=== PATIENT | male | born 1950 | race Caucasian/White ===

== ENCOUNTER 2017-06-01 03:22 | Emergency (ER) | payer OTHER ==
[~2017-06-01] VITALS: Ht 172.7 cm; Wt 97.5 kg
[~2017-06-01 03:22] MED LIST: FAMO-63 PO; LEVO750T31 PO; LOSA25TA4 PO; PRED20TA PO; VENTOLIN HFA18 GM INH
[2017-06-01] MEDS ORDERED: IV NORMAL SALINE 1000ML BAG 1,000 ML IV SCH (03:39)
[2017-06-01 03:53] LABS: BASO # 0.1 x10^3/uL (0.0-0.2); BASO % 1 % (0-3); EOS % 5 % (0-3); HEMATOCRIT 44.4 % (39.0-53.0); LYMPH # 4.8 x10^3/uL (1.0-4.8); LYMPH % 51 % (24-48); MEAN CORPUSCULAR HEMOGLOBIN 31 pg (25-35); MEAN CORPUSCULAR HGB CONC 34 g/dL (31-37); MEAN CORPUSCULAR VOLUME 90 fL (79-100); MONO % 12 % (0-9); NEUT % 32 % (31-73); PLATELET COUNT 214 x10^3/uL (140-400); RED BLOOD COUNT 4.94 x10^6/uL (4.30-5.70); WHITE BLOOD COUNT 9.5 x10^3/uL (4.0-11.0)
[2017-06-01] MEDS: HYDROmorphone 2 MG/ML VIAL IV/SQ PRN ×3 (03:55→04:39)
[2017-06-01 03:56] LABS: BILIRUBIN,URINE NEGATIVE (NEG); GLUCOSE,URINE NEGATIVE (NEG); NITRITE,URINE NEGATIVE (NEG); PH,URINE 5.5; PROTEIN,URINE 30 mg/dL (NEG-TRACE); UROBILINOGEN,URINE 0.2 mg/dL (0.2 mg/dL)
--- NOTE | 2017-06-01 03:58 | ED.ADGEN ---
Past Medical History Past Medical History: Hypertension Additional Past Medical Histor: SLEEP APNEA Past Surgical History: Other Additional Past Surgical Histo: LEFT WRIST ERIBERTO PLACED Alcohol Use: None Drug Use: None Adult General Chief Complaint Chief Complaint: FLANK PAIN HPI HPI Patient is a 66 year old man, history of hypertension, sleep apnea, who presents to the emergency department with a complaint of sudden onset of right- sided flank pain radiating down to the right groin. Patient states that he was awoken from sleep by severe right-sided flank pain, states it is over the pain he has experienced "20 or 30 years ago", when he had a kidney stone. Patient stated that time he did require intervention for retrieval of the stone as it was too large to pass on its own. Patient states he has had some nausea with this, denies any chest pain or shortness breath, any abdominal pain initially, states now the pain is radiating down into the right groin, he states that he has been urinating without any issue, no hematuria or dysuria, denies any injuries, denies any other back pain, any weakness, numbness or tingling in place. Patient is extremely uncomfortable, rocking on the bed. Review of Systems Review of Systems Constitutional: Denies fever or chills. [] Eyes: Denies change in visual acuity. [] HENT: Denies nasal congestion or sore throat. [] Respiratory: Denies cough or shortness of breath. [] Cardiovascular: Denies chest pain or edema. [] GI: Denies vomiting, bloody stools or diarrhea. [] Pain in the right flank now radiating down to the right lower quadrant and right groin. Associated with nausea. : Denies dysuria. [] Musculoskeletal: Denies back pain or joint pain. [] Integument: Denies rash. [] Neurologic: Denies headache, focal weakness or sensory changes. [] Endocrine: Denies polyuria or polydipsia. [] Lymphatic: Denies swollen glands. [] Psychiatric: Denies depression or anxiety. [] Current Medications Current Medications Current Medications Medications (Trade) Dose Ordered Sig/Meka Start Time Stop Time Status Last Admin Dose Admin Acetaminophen/ Hydrocodone Bitart (Lortab 10/325) 1 tab 1X ONCE 06/01/17 06:00 06/01/17 06:01 DC 06/01/17 05:47 1 TAB Hydromorphone HCl (Dilaudid) 0.5 mg PRN Q15MIN PRN 06/01/17 03:45 06/02/17 03:44 06/01/17 04:39 0.5 MG Ketorolac Tromethamine (Toradol) 10 mg 1X ONCE 06/01/17 06:00 06/01/17 06:01 DC 06/01/17 05:47 10 MG Levofloxacin (Levaquin) 750 mg 1X ONCE 06/01/17 06:00 06/01/17 06:01 DC 06/01/17 05:48 750 MG Ondansetron HCl (Zofran) 4 mg 1X ONCE 06/01/17 06:00 06/01/17 06:01 DC 06/01/17 05:47 4 MG Sodium Chloride 1,000 ml @ 1,000 mls/hr Q1H 06/01/17 03:39 06/01/17 04:38 DC 06/01/17 03:56 1,000 MLS/HR Tamsulosin HCl (Flomax) 0.4 mg 1X ONCE 06/01/17 06:00 06/01/17 06:01 DC 06/01/17 05:48 0.4 MG Allergies Allergies Allergies Coded Allergies Type Severity Reaction Last Updated Verified No Known Drug Allergies 09/10/14 No Physical Exam Physical Exam Constitutional: Well developed, well nourished, patient appears extremely uncomfortable, is rocking on bed, non-toxic appearance. [] HENT: Normocephalic, atraumatic, bilateral external ears normal, oropharynx moist, no oral exudates, nose normal. [] Eyes: PERRLA, EOMI, conjunctiva normal, no discharge. [] Neck: Normal range of motion, no tenderness, supple, no stridor. [] Cardiovascular:Heart rate regular rhythm, no murmur , S1, S2, rubs or gallops.[] Lungs & Thorax: Bilateral breath sounds clear to auscultation, no wheezing, rhonchi, rales. No chest or crepitus or tenderness. [] Abdomen: Bowel sounds normal, soft, obese, no rebound, rigidity, no guarding, no tenderness, no masses, no pulsatile masses. [] Skin: Warm, dry, no erythema, no rash. [] Back: No tenderness, right-sided CVA tenderness noted. Radiating down to the right groin, no abdominal tenderness on palpation. Extremities: No tenderness, no cyanosis, no clubbing, ROM intact, no edema. [] Neurologic: Alert and oriented X 3, normal motor function, normal sensory function, no focal deficits noted. [] Psychologic: Affect normal, judgement normal, mood normal. [] Current Patient Data Vital Signs Vital Signs Date Time Temp Pulse Resp B/P (MAP) Pulse Ox O2 Delivery O2 Flow Rate FiO2 06/01/17 06:01 57 20 136/74 (94) 93 Room Air 06/01/17 05:01 2.0 06/01/17 03:41 97.5 97.5 Lab Values Laboratory Tests Test 06/01/17 03:20 06/01/17 03:35 Urine Collection Type Unknown Urine Color Yellow Urine Clarity Clear Urine pH 5.5 Urine Specific [place] >=1.030 Urine Protein 30 mg/dL (NEG-TRACE) Urine Glucose (UA) Negative mg/dL (NEG) Urine Ketones (Stick) Negative mg/dL (NEG) Urine Blood Moderate (NEG) Urine Nitrite Negative (NEG) Urine Bilirubin Negative (NEG) Urine Urobilinogen Dipstick 0.2 mg/dL (0.2 mg/dL) Urine Leukocyte Esterase Negative (NEG) Urine RBC 11-20 /HPF (0-2) Urine WBC 1-4 /HPF (0-4) Urine Squamous Epithelial Cells Few /LPF Urine Bacteria Few /HPF (0-FEW) Urine Mucus Marked /LPF White Blood Count 9.5 x10^3/uL (4.0-11.0) Red Blood Count 4.94 x10^6/uL (4.30-5.70) Hemoglobin 15.0 g/dL (13.0-17.5) Hematocrit 44.4 % (39.0-53.0) Mean Corpuscular Volume 90 fL (79-100) Mean Corpuscular Hemoglobin 31 pg (25-35) Mean Corpuscular Hemoglobin Concent 34 g/dL (31-37) Red Cell Distribution Width 13.0 % (11.5-14.5) Platelet Count 214 x10^3/uL (140-400) Neutrophils (%) (Auto) 32 % (31-73) Lymphocytes (%) (Auto) 51 % (24-48) H Monocytes (%) (Auto) 12 % (0-9) H Eosinophils (%) (Auto) 5 % (0-3) H Basophils (%) (Auto) 1 % (0-3) Neutrophils # (Auto) 3.0 x10^3uL (1.8-7.7) Lymphocytes # (Auto) 4.8 x10^3/uL (1.0-4.8) Monocytes # (Auto) 1.1 x10^3/uL (0.0-1.1) Eosinophils # (Auto) 0.5 x10^3/uL (0.0-0.7) Basophils # (Auto) 0.1 x10^3/uL (0.0-0.2) Sodium Level 140 mmol/L (136-145) Potassium Level 3.8 mmol/L (3.5-5.1) Chloride Level 104 mmol/L (98-107) Carbon Dioxide Level 25 mmol/L (21-32) Anion Gap 11 (6-14) Blood Urea Nitrogen 22 mg/dL (8-26) Creatinine 1.3 mg/dL (0.7-1.3) Estimated GFR (Cockcroft-Gault) 55.6 BUN/Creatinine Ratio 17 (6-20) Glucose Level 117 mg/dL (70-99) H Calcium Level 9.4 mg/dL (8.5-10.1) Total Bilirubin 0.3 mg/dL (0.2-1.0) Aspartate Amino Transferase (AST) 31 U/L (15-37) Alanine Aminotransferase (ALT) 71 U/L (16-63) H Alkaline Phosphatase 175 U/L (46-116) H Total Protein 7.8 g/dL (6.4-8.2) Albumin 3.6 g/dL (3.4-5.0) Albumin/Globulin Ratio 0.9 (1.0-1.7) L Laboratory Tests 06/01/17 03:35 Laboratory Tests 06/01/17 03:35 EKG EKG EC: Sinus rhythm, heart rate 60 bpm, upright axis, QTC of 434, WA 146, QRS of 100, no ST elevations or depressions, mild baseline artifact noted, contour abnormalities noted in the anterior lateral leads, abnormal ECG, does not meet STEMI criteria. As interpreted by me. Radiology/Procedures Radiology/Procedures [][facility] [address] [place] [address] IMAGING REPORT Signed PATIENT: JOSÉ LUIS HOOVER ACCOUNT: [id number] : 1950 LOCATION: ER AGE: 66 SEX: M EXAM STATUS: REG ER ORD. PHYSICIAN: NICHOLAS KAPLAN DO REASON: R flank pain PROCEDURE: CT ABDOMEN PELVIS WO CONTRAST CT abdomen and pelvis without contrast TECHNIQUE: Helical noncontrast imaging of the abdomen and pelvis. HISTORY: Right flank pain. Abdomen findings: Lung bases demonstrate calcified granulomas right lower lobe. Pulmonary nodules left lower lobe and lingula largest measuring 5 mm at the lingula. Lower lumbar spine disc bulges probable spinal canal stenosis and foraminal stenoses at L5-S1. 3 mm left renal calculus. Mild right renal hydronephrosis and perinephric edema due to a distal right ureteral 3 mm calculus approximately 3 cm above the bladder. Hypodensity of the liver likely fatty. Gallbladder, pancreas, adrenal glands and spleen are unremarkable. No obstruction or inflammation GI tract. Appendix not identified could be surgically absent or markedly hypoplastic. No abdominal free fluid. Pelvis findings: No bladder calculi. Prostate, rectum and bones are unremarkable. Bilateral fatty inguinal hernias. IMPRESSION: 1. Mild right renal hydronephrosis due to a 3 mm distal right ureteral obstructing calculus. 2. Left nephrolithiasis. 3. Fatty inguinal hernias. 4. 3 pulmonary nodules at the left lung base largest measuring 5 mm. In a low-risk patient no follow-up is necessary, in a high risk patient optional CT follow-up in 12 months would be advised per Fleischner guidelines. Exposure: One or more of the following individualized dose reduction techniques were utilized for this examination: 1. Automated exposure control 2. Adjustment of the mA and/or kV according to patient size 3. Use of iterative reconstruction technique Electronically signed by: Ronna Rodriguez MD (06/01/2017 5:10 AM) [facility] DICTATED and SIGNED BY: RONNA RODRIGUEZ MD DATE: 06/01/17 0508 CC: NEREIDA BARR MD; NICHOLAS KAPLAN DO ~ Course & Med Decision Making Course & Med Decision Making Pertinent Labs and Imaging studies reviewed. (See chart for details) Patient's examination and history are concerning for recurrent renal calculi. Patient agreeable to receiving antiemetics, pain medication, IV fluids, and CT imaging of the abdomen and pelvis to elucidate symptoms further and identify a possible renal calculus versus another cause of his symptoms. CT of the abdomen and pelvis revealed a 3 mm obstructing calculi 3 cm above the bladder. Mild hydronephrosis noted, patient noted to have a few bacteria in the urine, no nitrates, lupus, and only one to 4 WBCs, renal function and lites within normal limits aside from a mildly elevated glucose at 117. Patient resting more comfortably after receiving several doses of pain medication, no emesis in the ED. I did discuss findings as above with patient, patient is agreeable with plan to be discharged home with oral medications, for a home trial, instructed to stay well-hydrated, will return to the ED if he is unable tolerate medications, or nuchal or concerning symptoms develop. We did have a lengthy discussion at bedside regarding importance of follow-up and return for concerning symptoms. Patient was given oral hydrocodone, Flomax, Levaquin,due to the small amount of bacteria in the urine, along with a second dose of Zofran , Toradol. On reevaluation he continues to be comfortable, and tolerate medications without issue. Discharged home in stable condition with symptoms controlled with prescriptions for Zofran, Percocet, naproxen, Flomax, Levaquin, with follow-up instructions, and return precautions as stated. Dragon Disclaimer Dragon Disclaimer This electronic medical record was generated, in whole or in part, using a voice recognition dictation system. Departure Impression: Primary Impression: Ureteral calculi Disposition: HOME, SELF-CARE Condition: IMPROVED Scripts Oxycodone/Apap 7.5-325 (PERCOCET 7.5-325 MG TABLET) 1 Each Tablet 1 TAB PO PRN Q4-6HRS Y for PAIN, #12 TAB 0 Refills Caution with use of this medication as it may cause drowsiness, no driving or operating machinery while using oxycodone. Prov: NICHOLAS KAPLAN DO 06/01/17 Ondansetron Hcl (ZOFRAN) 4 Mg Tablet 1 TAB PO PRN Q6-8HRS Y for NAUSEA, #12 TAB Prov: NICHOLAS KAPLAN DO 06/01/17 Levofloxacin (LEVAQUIN) 750 Mg Tablet 1 TAB PO DAILY, #4 TAB One tablet by mouth once daily for 5 days. First dose given in the emergency department, begin on 06/02. Prov: NICHOLAS KAPLAN DO 06/01/17 Tamsulosin Hcl (FLOMAX) 0.4 Mg Cap.er.24h 0.4 MG PO DAILY, #3 TAB One tablet by mouth once daily for the next 3 days. Begin on 06/02. Prov: NICHOLAS KAPLAN DO 06/01/17 Naproxen (NAPROXEN) 250 Mg Tablet 250 MG PO PRN BID Y for PAIN, #10 Take with food, stop use if stomach upset develops. Prov: NICHOLAS KAPLAN DO 06/01/17 NICHOLAS KAPLAN DO Jun 01, 2017 03:58
[2017-06-01] MEDS ORDERED: ONDANSETRON PF 4 MG/2 ML VIAL. IV ONE ×2 (04:00→06:00)
[2017-06-01 04:10] LABS: CALCIUM 9.4 mg/dL (8.5-10.1); CREATININE 1.3 mg/dL (0.7-1.3); GFR 55.6; POTASSIUM 3.8 mmol/L (3.5-5.1)
[2017-06-01 04:18] LABS: ALBUMIN 3.6 g/dL (3.4-5.0); ALBUMIN/GLOBULIN RATIO 0.9 (1.0-1.7); TOTAL BILIRUBIN 0.3 mg/dL (0.2-1.0); TOTAL PROTEIN 7.8 g/dL (6.4-8.2)
[2017-06-01 04:26] LABS: BACTERIA,URINE FEW /HPF (0-FEW); SQUAMOUS EPITHELIAL CELL,UR FEW /LPF
--- NOTE | 2017-06-01 05:13 | RAD ---
CT abdomen and pelvis without contrast TECHNIQUE: Helical noncontrast imaging of the abdomen and pelvis. HISTORY: Right flank pain. Abdomen findings: Lung bases demonstrate calcified granulomas right lower lobe. Pulmonary nodules left lower lobe and lingula largest measuring 5 mm at the lingula. Lower lumbar spine disc bulges probable spinal canal stenosis and foraminal stenoses at L5-S1. 3 mm left renal calculus. Mild right renal hydronephrosis and perinephric edema due to a distal right ureteral 3 mm calculus approximately 3 cm above the bladder. Hypodensity of the liver likely fatty. Gallbladder, pancreas, adrenal glands and spleen are unremarkable. No obstruction or inflammation GI tract. Appendix not identified could be surgically absent or markedly hypoplastic. No abdominal free fluid. Pelvis findings: No bladder calculi. Prostate, rectum and bones are unremarkable. Bilateral fatty inguinal hernias. IMPRESSION: 1. Mild right renal hydronephrosis due to a 3 mm distal right ureteral obstructing calculus. 2. Left nephrolithiasis. 3. Fatty inguinal hernias. 4. 3 pulmonary nodules at the left lung base largest measuring 5 mm. In a low-risk patient no follow-up is necessary, in a high risk patient optional CT follow-up in 12 months would be advised per Fleischner guidelines. Exposure: One or more of the following individualized dose reduction techniques were utilized for this examination: 1. Automated exposure control 2. Adjustment of the mA and/or kV according to patient size 3. Use of iterative reconstruction technique Electronically signed by: Ravi Rodriguez MD (06/01/2017 5:10 AM) [facility]
[2017-06-01] MEDS ORDERED: HYDROcodone/APAP 10/325 1 TAB TABLET PO ONE (06:00)
[2017-06-01] MEDS ORDERED: TAMSULOSIN 0.4 MG CAP.ER.24H. PO ONE (06:00)
[2017-06-01] MEDS ORDERED: KETOROLAC 15 MG/ML VIAL. IV ONE (06:00)
[2017-06-01 06:01] VITALS: BP 136/74
[2017-06-01] MEDS ORDERED: TAMS0.4C97 PO (06:26)
[2017-06-01] MEDS ORDERED: OXYC-327 PO (06:26)
[2017-06-01] MEDS ORDERED: ONDA4TAB7 PO (06:26)
[2017-06-01] MEDS ORDERED: NAPR250T6 PO (06:26)
[2017-06-01] MEDS ORDERED: LEVO750T31 PO (06:26)
--- NOTE | 2017-06-01 07:51 | EKG ---
[facility] [address] [place] [address] Test Date: 2017-06-01 Test Time: 04:01:15 Pat Name: JOSÉ LUIS HOOVER Department: Room: Gender: Front Desk Monitor: : 1950 Requested By: NICHOLAS KAPLAN Order Number: [id number] Reading MD: Madina Stokes Measurements Intervals [place] Rate: 60 P: 42 [place]: 146 QRS: 20 QRSD: 100 T: 28 QT: 430 QTc: 434 Interpretive Statements SINUS RHYTHM NORMAL ECG Electronically Signed On 06-01-2017 19:34:18 CDT by Madina Stokes
== END 2017-06-01 06:35 | disposition home or self-care (01) ==
LOC: ER 03:22
DX: N20.1 Calculus of ureter (principal); I10 Essential (primary) hypertension
CPT/HCPCS: 36415; 74176; 80053; 81001; 85025; 93005; 96374; 96375; 96376; 99285; J1170; J1885; J2405; J7030

== ENCOUNTER → 2021-07-20 | Outpatient (CLI) | payer MEDICARE, OTHER ==
[~2021-07-20] MED LIST changes: -LOSA25TA4 PO; +LOSA25TA54 PO; +NAPR-699 PO; +ONDA4TAB7 PO; +OXYC1TAB19 PO; +TAMS0.4C97 PO
--- NOTE | 2021-07-23 11:46 | RAD ---
MR#: [id number] Date of Study: 07/20/2021 Ordering Physician: HILARIO MALIK, Referring Physician: CHARMAINE DE LA GARZA Tech: RT Dwayne (R) (N) APPROVED REPORT Test Type: Exercise Stress Nurse/Tech: Teresa Hansen RN Test Indications: chest pain Cardiac History: HTN Medications: See Electronic Medical Record Medical History: See Electronic Medical Record Resting ECG: SR PAC Resting Heart Rate: 68 bpm Resting Blood Pressure: 148/97mmHg Pretest Chest Pain: No chest pain Nurse/Tech Notes Lungs CTA, S1S2 Consent: The procedure was explained to the patient in lay terms. Informed consent was witnessed. Lucas eout was entered into [employer]. History and Stress Test performed by ARIAS Steen, ARRT (R) (N) Stress Symptoms No chest pain or symptoms. POST EXERCISE Reason for Termination: Reached target heart rate Target HR: Yes Max HR: 153 bpm 100% of Maximum Predicted HR: 152 bpm Exercise duration: 6:12 min:sec, 3 Stage Exercise capacity: 10METs Max Blood Pressure: 179/91mmHg Blood Pressure response to exercise: Normal blood pressure response during stress. Heart Rate response to exercise: normal response Chest Pain: No. Arrhythmia: No. ST Change: No. INTERPRETATION Stress EKG Conclusion: The resting EKG shows a sinus rhythm with nonspecific ST-T wave changes and PV Cs. The stress EKG shows no significant changes from baseline. No EKG evidence of stress-induced ischemia. Imaging Protocol IMAGE PROTOCOL: Rest Tc-99m/stress Tc-99m 1 day Rest: Stress: Viability: Radiopharm.Tc99m GdvfgdbekDn86m Sestamibi Dose10.8mCi 32.1mCi Duration 15min. 15min. Img Date 07/20/2021 07/20/2021 Inj-Img Skou25bqm. 60min. Rest Admin Site:IV - Left HandAdministrator:RT Dwayne (R)(N) Stress Admin Site: IV - Left HandAdministrator: RT Jil (R)(N) STRESS DATA End Diast. Vol.104.0mlLVEDV index BSA48.0ml End Syst. Vol.33.0mlLVESV index BSA15.0ml Myocardial Vfej149.0gEject. Pddcodsg96.0% Stress Scores Regional WT0.00Summed WT4.00 Regional WM0.00Summed WM0.00 LV Perfusion The stress scans show mild inferior wall thinning. The rest scans show mild inferior wall thinning. Nuclear imaging shows no reversible ischemia. Nuclear imaging shows a largely fixed inferior defect most consistent with an attenuation artifact in the setting of normal LV function. Wall Motion Left ventricular systolic function is normal with an ejection fraction of 68%. LV Perf. Quant 17 Seg. SSS8.00 17 Seg. SRS8.00 17 Seg. SDS1.00 Stress Defect Extent (% LAD)0.00Rest Defect Extent (% LAD)0.00Rev. Defect Extent (% LAD)0.00 Stress Defect Extent (% LCX) 32.50Rest Defect Extent (% LCX)28.80Rev. Defect Extent (% LCX)1.30 Stress Defect Extent (% RCA)25.60Rest Defect Extent (% RCA)23.30Rev. Defect Extent (% RCA)1.10 Stress Defect Extent (% HUNTER)15.00Rest Defect Extent (% HUNTER)12.40Rev. Defect Extent (% HUNTER)0.90 Conclusion 1. Good exercise tolerance with the patient walking for 6 minutes and 12 seconds on a [facility] protocol. 2. No chest pain reported with exertion. 3. No EKG evidence of stress-induced ischemia. 4. Nuclear imaging shows no reversible ischemia. 5. Nuclear imaging shows a largely fixed inferior wall defect. 6. Normal left ventricular systolic function with an ejection fraction of 68%. 7. Moderately low risk treadmill nuclear stress test. Signed by : Hilario Malik MD Electronically Approved : 07/23/2021 11:45:56
== END ==
LOC: NM 09:01
PROVIDERS: ATTEND Internal Medicine Cardiovascular Disease
DX: I51.0 Cardiac septal defect, acquired (principal); R07.9 Chest pain, unspecified
CPT/HCPCS: 78452; 93017; A9500

== ENCOUNTER → 2021-08-08 | Outpatient (CLI) | payer MEDICARE ==
--- NOTE | 2021-08-13 20:25 | SLEEP ---
DATE OF STUDY: 08/08/2021 SLEEP STUDY ATTENDING PHYSICIAN: Nereida Buck MD The patient is a 70-year-old male who weighs 235 pounds with a BMI of 34.7. The patient's [place] score was 5. The patient underwent split night study performed at [facility]. During the night study, the patient spent 548 minutes in bed and slept for 321 minutes with a low sleep efficiency of 58%. Sleep latency was 136 minutes with a REM latency of 394 minutes. Sleep architecture showed increased stage 1 and stage 2 sleep, normal slow wave and reduced REM sleep. During the initial diagnostic portion of the study, the patient slept for 104 minutes. During that time, there were 104 obstructive apneas, no central apneas, 10 mixed apneas and 26 hypopneas. The patient's AHI was 81 per hour with a supine AHI of 107 per hour. REM sleep was not observed during the diagnostic portion. EKG monitoring revealed an average heart rate of 71 beats per minute. There were PVCs seen throughout. No sustained arrhythmias observed. There were bigeminies and trigeminies seen. PLMs were seen at the index of 5 per hour and none caused EEG arousals. Nocturnal oximetry study revealed a mean oxygen saturation of 94% with a lowest of 83% and 59% of time oxygen saturation remained between 80% and 89%. The patient met the criteria for CPAP initiation. It was started at 12 cm water and titrated up to 16 cm water. Due to the patient's comfort, the patient was switched to BiPAP at a pressure of 20/16. The patient slept for 57 minutes. The patient's AHI was 3.2 per hour. The patient's oxygen saturations remained above 90%. The patient used full face mask. The patient had supine sleep, but no REM sleep at the final BiPAP pressure. IMPRESSION: 1. Severe obstructive sleep apnea at an AHI of 81 per hour. REM sleep was not seen during the diagnostic portion. 2. Nocturnal hypoxia secondary to obstructive sleep apnea, but resolved with BiPAP. 3. Abnormal EKG with PVCs. 4. No significant periodic limb movements. RECOMMENDATIONS: 1. BiPAP at a pressure of 20/16 should be used on a nightly basis. 2. Follow up in 4-6 weeks to assess compliance with BiPAP and to document clinical improvement. 3. Weight loss is advised. 4. Avoid [employer] depressants. 5. Cautioned regarding driving until symptoms of sleep apnea resolve with the use of BiPAP. LAYLA/MARK/ANITA DR: Du TID: [id number] CC: NEREIDA BUCK MD
== END ==
LOC: SLPLAB 18:54
PROVIDERS: ATTEND Physician Assistant
DX: G47.33 Obstructive sleep apnea (adult) (pediatric) (principal)
CPT/HCPCS: 95810